=== PATIENT | male | born 1955 | race Caucasian/White ===

== ENCOUNTER 2019-01-24 07:27 | Day surgery (SDC) | payer OTHER ==
[~2019-01-24] VITALS: Ht 177.8 cm; Wt 85.2 kg
[2019-01-24] MEDS ORDERED: ZESTRIL40 MG PO (08:17)
[2019-01-24] MEDS ORDERED: ATOR40TA PO (08:17)
[2019-01-24] MEDS ORDERED: HYDCHL12.5 PO (08:17)
[2019-01-24] MEDS ORDERED: TAMS.4ER PO (08:18)
== END 2019-01-24 09:27 | disposition home or self-care (01) ==
LOC: ORSCSDS 07:27
PROVIDERS: Internal Medicine Gastroenterology
PROC: 0DBK8ZX Excision of Ascending Colon, Via Natural or Artificial Opening Endoscopic, Diagnostic (ICD-10-PCS; principal; 2019-01-24 08:45)
PROC: 0DBM8ZX Excision of Descending Colon, Via Natural or Artificial Opening Endoscopic, Diagnostic (ICD-10-PCS; principal; 2019-01-24 08:45)
DX: Z12.11 Encounter for screening for malignant neoplasm of colon (principal); D12.2 Benign neoplasm of ascending colon; D12.4 Benign neoplasm of descending colon; K64.8 Other hemorrhoids; K57.30 Diverticulosis of large intestine without perforation or abscess without bleeding; I10 Essential (primary) hypertension; E78.5 Hyperlipidemia, unspecified; Z79.899 Other long term (current) drug therapy
CPT/HCPCS: 88305; J2704; J7120

== ENCOUNTER 2023-03-04 10:33 | Day surgery (SDC) | payer OTHER ==
[~2023-03-04] VITALS: Ht 177.8 cm; Wt 81.3 kg
[~2023-03-04 10:33] MED LIST: ATOR40TA PO; HYDCHL12.5 PO; TAMS.4ER PO; ZESTRIL40 MG PO
[2023-03-04 12:35] VITALS: BP 116/86
== END 2023-03-04 12:30 | disposition home or self-care (01) ==
LOC: ORSCSDS 10:33
PROVIDERS: Student in an Organized Health Care Education/Training Program
PROC: 0DJD8ZZ Inspection of Lower Intestinal Tract, Via Natural or Artificial Opening Endoscopic (ICD-10-PCS; principal; 2023-03-04 11:45)
DX: Z12.11 Encounter for screening for malignant neoplasm of colon (principal); Z86.010 Personal history of colon polyps; K64.4 Residual hemorrhoidal skin tags; K57.30 Diverticulosis of large intestine without perforation or abscess without bleeding; I10 Essential (primary) hypertension; E78.5 Hyperlipidemia, unspecified; K64.8 Other hemorrhoids; K62.89 Other specified diseases of anus and rectum; Z79.899 Other long term (current) drug therapy
CPT/HCPCS: J2704; J7120